=== PATIENT | male | born 1980 | race Caucasian/White ===

== ENCOUNTER 2022-07-19 07:53 | Day surgery (SDC) | payer OTHER ==
[2022-07-14 14:07] LABS: BASOPHILS % (AUTO) 0.5 % (0.0-2.0); EOSINOPHILS # (AUTO) 0.1 K/uL (0.0-0.4); EOSINOPHILS % (AUTO) 2.1 % (0.0-4.0); HEMATOCRIT 46.5 % (36-54); HEMOGLOBIN 15.5 g/dL (14.0-18.0); LYMPHOCYTES # (AUTO) 1.7 K/uL (1.0-5.5); LYMPHOCYTES % (AUTO) 25.2 % (20.5-51.5); MEAN CORPUSCULAR HEMOGLOBIN 28 pg (27-31); MEAN CORPUSCULAR HGB CONC 33 % (32-36); MEAN CORPUSCULAR VOLUME 85 fL (79.0-98.0); MONOCYTES # (AUTO) 0.5 K/uL (0.0-1.0); MONOCYTES % (AUTO) 7.9 % (1.7-9.3); NEUTROPHILS # (AUTO) 4.4 K/uL (1.8-7.7); NEUTROPHILS % (AUTO) 64.3 % (40.0-70.0); PLATELET COUNT (AUTO) 151 K/uL (130-430); RED BLOOD CELL COUNT(AUTO) 5.47 MIL/uL (4.2-6.2); RED CELL DISTRIBUTION WIDTH 13.6 % (9.0-15.0); WHITE BLOOD COUNT (AUTO) 6.9 K/uL (4.8-10.8)
[2022-07-14 14:08] LABS: BILIRUBIN,URINE NEGATIVE (NEGATIVE); BLOOD, URINE NEGATIVE (NEGATIVE); CLARITY/URINE CLEAR (CLEAR); COLOR,URINE YELLOW (YELLOW); GLUCOSE,URINE NEGATIVE (NEGATIVE); KETONES,URINE NEGATIVE (NEGATIVE); LEUKOCYTE ESTERASE ,URINE NEGATIVE (NEGATIVE); NITRITE, URINE NEGATIVE (NEGATIVE); PH,URINE 5.5 (5.0-8.0); PROTEIN URINE NEGATIVE (NEGATIVE); UROBILINOGEN,URINE 0.2 (0.2-1.0)
[2022-07-14 14:22] LABS: CALCIUM 8.9 mg/dL (8.4-11.0); CREATININE 0.83 mg/dL (0.55-1.30)
[2022-07-14 14:28] LABS: PROTHROMBIN TIME 10.4 SECS (9.5-12.5)
[~2022-07-19] VITALS: Ht 167.6 cm; Wt 95.3 kg
[2022-07-19] MEDS ORDERED: SUGAMMADEX SODIUM 200 MG/2 ML VIAL IV ONE (11:10)
[2022-07-19] MEDS ORDERED: KETOROLAC TROMETHAMINE 30 MG VIAL ONE (11:10)
[2022-07-19] MEDS ORDERED: ONDANSETRON HCL 4 MG/2 ML VIAL ONE (11:10)
[2022-07-19] MEDS ORDERED: PROPOFOL 200MG/ 20ML VIAL (DIPRIVAN) IV ONE (11:10)
[2022-07-19] MEDS ORDERED: LIDOCAINE PF 2%, 200 MG/10 ML AMPUL.LUER (EPIDURAL) INJ ONE (11:10)
[2022-07-19] MEDS ORDERED: fentaNYL CITRATE 250 MCG/5 ML AMP ONE (11:10)
[2022-07-19] MEDS ORDERED: NS 1000 ML IV.SOLN IV ONE (11:10)
[2022-07-19] MEDS ORDERED: CEFAZOLIN 2 GM IVPB PREMIX 50 ML IV ONE (11:10)
[2022-07-19] MEDS ORDERED: LIDOCAINE/EPI 1% 1:100000 20 ML VIAL ONE (11:10)
[2022-07-19] MEDS ORDERED: ROCURONIUM BROMIDE 10 MG/ML (ZEMURON) ONE (11:10)
[2022-07-19] MEDS ORDERED: MIDAZOLAM HCL 5 MG/5 ML VIAL ONE (11:10)
[2022-07-19] MEDS ORDERED: DESFLURANE 15 MIN GAS INH ONE (11:10)
[2022-07-19] MEDS ORDERED: NS IRRIG SOLN 1000 ML IR ONE (11:10)
[2022-07-19] MEDS ORDERED: DEXAMETHASONE SOD PHOSPHATE 4 MG/ML VIAL ONE (11:10)
[2022-07-19] MEDS ORDERED: HYDR-3917 PO (11:30)
[2022-07-19] MEDS ORDERED: ACETAMINOPHEN I.V. 1000 MG 100 ML IV ONE (11:59)
[2022-07-19] MEDS ORDERED: MEPERIDINE HCL/PF 25 MG/ML DISP.SYRIN IVP PRN (12:15)
[2022-07-19] MEDS ORDERED: LR 1,000 ML IV SCH (12:15)
[2022-07-19] MEDS ORDERED: LABETALOL 100 MG/ 20ML VIAL IVP PRN (12:15)
[2022-07-19] MEDS ORDERED: HYDROmorphone 1 MG/ML INJ. CARTRIDGE IVP PRN ×2 (12:15)
[2022-07-19] MEDS ORDERED: METOCLOPRAMIDE HCL 10 MG/2 ML VIAL IVP PRN (12:15)
[2022-07-19] MEDS ORDERED: MIDAZOLAM HCL 2 MG/2 ML VIAL (VERSED) IVP PRN (12:15)
[2022-07-19] MEDS ORDERED: hydrALAZINE HCL 20 MG/ML VIAL IVP PRN (12:15)
[2022-07-19] MEDS ORDERED: HYDROmorphone 1 MG/ML INJ. CARTRIDGE ONE (15:45)
[2022-07-19 17:33] VITALS: BP_SYST 135
== END 2022-07-19 17:35 | disposition home or self-care (01) ==
LOC: SDS 07:53 → SMU 07:57 → SDS 17:35
PROVIDERS: ATTEND Orthopaedic Surgery Sports Medicine
DX: M23.612 Other spontaneous disruption of anterior cruciate ligament of left knee (principal); M23.201 Derangement of unspecified lateral meniscus due to old tear or injury, left knee; I10 Essential (primary) hypertension; E66.9 Obesity, unspecified; Z79.01 Long term (current) use of anticoagulants; Z79.899 Other long term (current) drug therapy; Z20.822 Contact with and (suspected) exposure to COVID-19
CPT/HCPCS: 80048; 85025; 85610; 85730; 87081; 36415 ×2; 81003; 29888; 29881; 87426; J3490; J0690; J1100; J1885; J2001; J2250; J3465; J2405; J2704; J3010; J1170; J7030; C1713 ×5; J0131